=== PATIENT | male | born 1990 | race Caucasian/White ===

== ENCOUNTER 2018-07-01 21:00 | Emergency (ER) | payer MEDICAID, OTHER ==
[2018-07-01 21:00] VITALS: BMI 22.8
--- NOTE | 2018-07-01 22:11 | ED PDOC ---
HPI: Psych/Substance Abuse Chief Complaint (Provider): psych eval History Per: EMS, Family Additional Complaint(s): 27 y/o male brought in by EMS for psych eval. Father at bedside, states patient has been with aggressive behavior, paranoid, and not showering or eating for one week. Noncompliant with psych meds. Mobile crisis contacted. Patient only responding to yes or no questions upon arrival. <Virginie Vasquez - Last Filed: 07/02/18 05:49> <Enrique Vernon - Last Filed: 07/02/18 06:13> Time Seen by Provider: 07/01/18 21:13 Chief Complaint (Nursing): Psychiatric Evaluation Past Medical History Reviewed: Historical Data, Nursing Documentation, Vital Signs Vital Signs: Last Vital Signs Temp 97.8 F 07/01/18 21:01 Pulse 83 07/01/18 21:01 Resp 16 07/01/18 21:01 BP 143/91 H 07/01/18 21:01 Pulse Ox 98 07/01/18 21:01 - Medical History PMH: Bipolar Disorder, Depression Denies: Diabetes, Hepatitis, HIV, HTN, Seizures, Sexually Transmitted Disease - Family History Family History: States: Unknown Family Hx - Immunization History Hx Tetanus Toxoid Vaccination: No Hx Influenza Vaccination: No Hx Pneumococcal Vaccination: No <Virginie Vasquez - Last Filed: 07/02/18 05:49> Vital Signs: Last Vital Signs Temp 97.8 F 07/01/18 21:01 Pulse 83 07/01/18 21:01 Resp 16 07/01/18 21:01 BP 143/91 H 07/01/18 21:01 Pulse Ox 98 07/02/18 05:56 <Enrique Vernon - Last Filed: 07/02/18 06:13> - Home Medications Home Medications: Ambulatory Orders Medication Instructions Recorded No Known Home Med 12/28/17 - Allergies Allergies/Adverse Reactions: Allergies Allergy/AdvReac Type Severity Reaction Status Date / Time No Known Allergies Allergy Verified 12/28/17 13:41 Review of Systems ROS Statement: Except As Marked, All Systems Reviewed And Found Negative Psych: Positive for: Psychosis <Virginie Vasquez - Last Filed: 07/02/18 05:49> Physical Exam - Reviewed Nursing Documentation Reviewed: Yes Vital Signs Reviewed: Yes - Physical Exam Appears: Positive for: Well, Non-toxic, No Acute Distress Head Exam: Positive for: ATRAUMATIC, NORMAL INSPECTION, NORMOCEPHALIC Skin: Positive for: Normal Color Eye Exam: Positive for: Normal appearance ENT: Positive for: Normal ENT Inspection Cardiovascular/Chest: Positive for: Regular Rate, Rhythm Respiratory: Positive for: Normal Breath Sounds Gastrointestinal/Abdominal: Positive for: Normal Exam Back: Positive for: Normal Inspection Extremity: Positive for: Normal ROM Neurologic/Psych: Positive for: Alert, Oriented (x3), Mood/Affect (flat; blank stares, slow to respond to questions) <Virginie Vasquez - Last Filed: 07/02/18 05:49> - Laboratory Results Result Diagrams: 07/02/18 00:22 07/02/18 00:22 - ECG ECG: Positive for: Viewed By Me (reviewed by ED attending) ECG Rhythm: Positive for: Sinus Bradycardia O2 Sat by Pulse Oximetry: 98 - Progress ED Course And Treament: -crisis eval Patient evaluated by personal support worker; to be screened as per Dr. Wilson -cbc -cmp -alcohol -urinalysis -urine drug screen -ekg -1:1 00:00 Patient awake; no distress 1:30 Patient awake; no distress 3:00 Patient awake; no distress 4:30 Patient evaluated by [facility] screener; accepted pending available bed Patient refusing to eat or drink, glucose 73 on labs; IV D5/NS ordered <Virginie Vasquez - Last Filed: 07/02/18 05:49> - Laboratory Results Result Diagrams: 07/02/18 00:22 07/02/18 00:22 Lab Results: Total Bilirubin 0.6 mg/dl (0.2-1.3) 07/02/18 00:22 AST 28 U/L (17-59) 07/02/18 00:22 ALT 24 U/L (21-72) 07/02/18 00:22 Alkaline Phosphatase 66 U/L (38-126) 07/02/18 00:22 Total Protein 8.0 G/DL (6.3-8.2) 07/02/18 00:22 Albumin 4.8 g/dL (3.5-5.0) 07/02/18 00:22 Globulin 3.2 gm/dL (2.2-3.9) 07/02/18 00:22 Albumin/Globulin Ratio 1.5 (1.0-2.1) 07/02/18 00:22 Urine Color Yellow (YELLOW) 07/02/18 05:04 Urine Clarity Cloudy (Clear) 07/02/18 05:04 Urine pH 6.0 (5.0-8.0) 07/02/18 05:04 Ur Specific [place] 1.034 (1.003-1.030) H 07/02/18 05:04 Urine Protein 100 mg/dL (NEGATIVE) 07/02/18 05:04 Urine Glucose (UA) Neg mg/dL (NEGATIVE) 07/02/18 05:04 Urine Ketones 80 mg/dL (NEGATIVE) 07/02/18 05:04 Urine Blood Negative (NEGATIVE) 07/02/18 05:04 Urine Nitrate Negative (NEGATIVE) 07/02/18 05:04 Urine Bilirubin Negative (NEGATIVE) 07/02/18 05:04 Urine Urobilinogen 2.0 mg/dL (0.2-1.0) 07/02/18 05:04 Ur Leukocyte Esterase Neg Halima/uL (Negative) 07/02/18 05:04 Urine RBC (Auto) 4 /hpf (0-3) H 07/02/18 05:04 Urine Microscopic WBC 2 /hpf (0-5) 07/02/18 05:04 Ur Squamous Epith Cells < 1 /hpf (0-5) 07/02/18 05:04 Urine Bacteria Rare (<OCC) 07/02/18 05:04 Hyaline Casts 3-5 /hpf (0-2) H 07/02/18 05:04 <Enrique Vernon - Last Filed: 07/02/18 06:13> Medical Decision Making Medical Decision Making: Patient medically stable for psych admission <Virginie Vasquez - Last Filed: 07/02/18 05:49> Medical Decision Makin Patient is signed out to Dr. Collazo, pending bed availability at [facility]. Scribe Attestation: Documented by Aleta Meehan, acting as a scribe for Enrique Vernon MD. Provider Scribe Attestation: All medical record entries made by the Scribe were at my direction and personally dictated by me. I have reviewed the chart and agree that the record accurately reflects my personal performance of the history, physical exam, medical decision making, and the department course for this patient. I have also personally directed, reviewed, and agree with the discharge instructions and disposition. <Enrique Vernon - Last Filed: 07/02/18 06:13> Disposition - Disposition Disposition Time: 06:00 Patient Signed Over To: Enrique Vernon Handoff Comments: pending available bed and transfer to [facility] <Virginie Vasquez - Last Filed: 07/02/18 05:49> <Enrique Vernon - Last Filed: 07/02/18 06:13> - Clinical Impression Clinical Impression: Schizoaffective disorder - Disposition Condition: STABLE Forms: [employer] (Lao)
[2018-07-02 00:39] LABS: ALB/GLOB RATIO 1.5 (1.0-2.1); ALBUMIN 4.8 g/dL (3.5-5.0); ALT/SGPT 24 U/L (21-72); AST/SGOT 28 U/L (17-59); BLOOD UREA NITROGEN 16 mg/dl (9-20); CALCIUM 9.7 mg/dL (8.4-10.2); GFR NON-AFRICAN AMERICAN > 60
[2018-07-02 00:56] LABS: BASO % 0.3 % (0.0-2.0); EOS % 0.6 % (0.0-4.0); HEMOGLOBIN 14.6 g/dL (12.0-18.0); LYMPH # 1.8 K/uL (1.0-4.3); LYMPH % 25.4 % (20.0-40.0); MEAN CELL VOLUME 91.2 fl (80.0-94.0); MEAN CORPUSCULAR HEMOGLOBIN 29.6 pg (27.0-31.0); MEAN CORPUSCULAR HGB CONC 32.4 g/dL (33.0-37.0); MONO # 0.7 K/uL (0.0-0.8); MONO % 9.4 % (0.0-10.0); NEUT # 4.6 K/uL (1.8-7.0); NEUT % 64.3 % (50.0-75.0); RBC 4.93 Mil/uL (4.40-5.90); RED CELL DISTRIBUTION WIDTH 13.4 % (11.5-14.5); WHITE BLOOD COUNT 7.1 K/uL (4.8-10.8)
[2018-07-02 05:13] LABS: SQUAMOUS EPITHIAL < 1 /hpf (0-5); URINE BACTERIA RARE (<OCC); URINE BILIRUBIN NEGATIVE (NEGATIVE); URINE BLOOD NEGATIVE (NEGATIVE); URINE CLARITY CLOUDY (Clear); URINE COLOR YELLOW (YELLOW); URINE GLUCOSE (UA) NEG (NEGATIVE); URINE LEUKOCYTE ESTERASE NEG Leu/uL (Negative); URINE PROTEIN 100 mg/dL (NEGATIVE)
[2018-07-02 05:25] LABS: BARBITURATES, UR NEGATIVE (NEGATIVE); BENZODIAZEPINES, UR NEGATIVE (NEGATIVE); OPIATES, UR NEGATIVE (NEGATIVE); PHENCYCLIDINE, UR NEGATIVE (NEGATIVE)
--- NOTE | 2018-07-02 07:09 | ED PDOC ---
- Laboratory Results Result Diagrams: 07/02/18 00:22 07/02/18 00:22 Lab Results: Total Bilirubin 0.6 mg/dl (0.2-1.3) 07/02/18 00:22 AST 28 U/L (17-59) 07/02/18 00:22 ALT 24 U/L (21-72) 07/02/18 00:22 Alkaline Phosphatase 66 U/L (38-126) 07/02/18 00:22 Total Protein 8.0 G/DL (6.3-8.2) 07/02/18 00:22 Albumin 4.8 g/dL (3.5-5.0) 07/02/18 00:22 Globulin 3.2 gm/dL (2.2-3.9) 07/02/18 00:22 Albumin/Globulin Ratio 1.5 (1.0-2.1) 07/02/18 00:22 Urine Color Yellow (YELLOW) 07/02/18 05:04 Urine Clarity Cloudy (Clear) 07/02/18 05:04 Urine pH 6.0 (5.0-8.0) 07/02/18 05:04 Ur Specific [place] 1.034 (1.003-1.030) H 07/02/18 05:04 Urine Protein 100 mg/dL (NEGATIVE) 07/02/18 05:04 Urine Glucose (UA) Neg mg/dL (NEGATIVE) 07/02/18 05:04 Urine Ketones 80 mg/dL (NEGATIVE) 07/02/18 05:04 Urine Blood Negative (NEGATIVE) 07/02/18 05:04 Urine Nitrate Negative (NEGATIVE) 07/02/18 05:04 Urine Bilirubin Negative (NEGATIVE) 07/02/18 05:04 Urine Urobilinogen 2.0 mg/dL (0.2-1.0) 07/02/18 05:04 Ur Leukocyte Esterase Neg Halima/uL (Negative) 07/02/18 05:04 Urine RBC (Auto) 4 /hpf (0-3) H 07/02/18 05:04 Urine Microscopic WBC 2 /hpf (0-5) 07/02/18 05:04 Ur Squamous Epith Cells < 1 /hpf (0-5) 07/02/18 05:04 Urine Bacteria Rare (<OCC) 07/02/18 05:04 Hyaline Casts 3-5 /hpf (0-2) H 07/02/18 05:04 - ECG O2 Sat by Pulse Oximetry: 98 (RA) Pulse Ox Interpretation: Normal Medical Decision Making Medical Decision Making: Patient signed out to me by Dr. Vernon pending [facility] bed availability. 0715 Patient accepted to [facility] under Dr. Dominguez. Transfer form completed. Patient stable for transfer. 1215 Labs and CXR unremarkable. Pt medically optimized for transfer to [facility] Scribe Attestation: Documented by Shanika Snowden acting as a scribe for Nhi Collazo MD Provider Attestation: All medical record entries made by the Scribe were at my direction and personally dictated by me. I have reviewed the chart and agree that the record accurately reflects my personal performance of the history, physical exam, medical decision making, and the department course for this patient. I have also personally directed, reviewed, and agree with the discharge instructions and disposition. Disposition - Clinical Impression Clinical Impression: Schizoaffective disorder - POA Present On Arrival: None - Disposition Disposition: Other Institution ([facility]) Disposition Time: 07:15 Condition: STABLE Forms: [employer] (C[place] Verdean)
--- NOTE | 2018-07-02 09:02 | CARD ---
APPROVED REPORT Date of service: 07/02/2018 EKG Measurement Heart [id number] <Conclusion> Sinus bradycardia Early repolarization Otherwise normal ECG
--- NOTE | 2018-07-02 14:25 | RAD ---
Date of service: 07/02/2018 HISTORY: Psych eval. Possible admission COMPARISON: 11/23/2014 FINDINGS: LUNGS: No active pulmonary disease. PLEURA: No significant pleural effusion identified, no pneumothorax apparent. CARDIOVASCULAR: No atherosclerotic calcification present Normal. OSSEOUS STRUCTURES: No significant abnormalities. VISUALIZED UPPER ABDOMEN: Normal. OTHER FINDINGS: None. IMPRESSION: No active disease. No significant interval change compared to the prior examination(s).
--- NOTE | 2018-07-02 14:27 | CP.PCM.CON ---
History of Present Illness - History of Present Illness History of Present Illness: face to face evaluation pt is 27 ys old male with previous diagnosis of bipolar disorder brought to ER by EMS due to increase agitation, threatening and disorganized behaviour pt has not been compliant with medications, became increasingly disorganized , paranoid, with threatening behaviour towards family members pt on evaluation, uncooperative domineering angry mood irritable, affect, paranoid, internally preoccupied with thought blocking pt is alert and awake, oriented to person and place, refusing voluntary admission and stating that he doen not need medications or treatment Past Patient History - Infectious Disease Hx of Infectious Diseases: None - Past Social History Smoking Status: Light Smoker < 10 Cigarettes Daily - CARDIAC Hx Hypertension: No - PULMONARY Hx Tuberculosis: No - NEUROLOGICAL Hx Seizures: No - HEMATOLOGICAL/ONCOLOGICAL Hx Human Immunodeficiency Virus (HIV): No - GENITOURINARY/GYNECOLOGICAL Hx Sexually Transmitted Disorders: No - PSYCHIATRIC Hx Bipolar Disorder: Yes Hx Depression: Yes - SURGICAL HISTORY Hx Surgeries: No - ANESTHESIA Hx Anesthesia: No Meds Allergies/Adverse Reactions: Allergies Allergy/AdvReac Type Severity Reaction Status Date / Time No Known Allergies Allergy Verified 12/28/17 13:41 - Medications Medications: Current Medications Dextrose/Sodium Chloride (Dextrose 5%-0.9% Ns 500 Ml) 500 mls @ 125 mls/hr IV .Q4H MARLEN Stop: 07/03/18 05:02 Last Admin: 07/02/18 09:15 Dose: Not Given Results - Vital Signs Recent Vital Signs: Last Vital Signs Temp 97.8 F 07/01/18 21:01 Pulse 83 07/01/18 21:01 Resp 16 07/01/18 21:01 BP 143/91 H 07/01/18 21:01 Pulse Ox 98 07/02/18 12:30 - Labs Result Diagrams: 07/02/18 00:22 07/02/18 00:22 Labs: Laboratory Results - last 24 hr 07/02/18 07/02/18 07/02/18 00:22 00:22 05:04 WBC 7.1 RBC 4.93 Hgb 14.6 Hct 45.0 MCV 91.2 MCH 29.6 MCHC 32.4 L RDW 13.4 Plt Count 262 MPV 9.0 Neut % (Auto) 64.3 Lymph % (Auto) 25.4 [place] % (Auto) 9.4 Eos % (Auto) 0.6 Baso % (Auto) 0.3 Neut # (Auto) 4.6 Lymph # (Auto) 1.8 [place] # (Auto) 0.7 Eos # (Auto) 0.0 Baso # (Auto) 0.0 Sodium 140 Potassium 4.1 Chloride 99 Carbon Dioxide 24 Anion Gap 21 H BUN 16 Creatinine 1.0 Est GFR ( Amer) > 60 Est GFR (Non-Af Amer) > 60 Random Glucose 73 L Calcium 9.7 Total Bilirubin 0.6 AST 28 ALT 24 Alkaline Phosphatase 66 Total Protein 8.0 Albumin 4.8 Globulin 3.2 Albumin/Globulin Ratio 1.5 Urine Color Urine Clarity Urine pH Ur Specific [place] Urine Protein Urine Glucose (UA) Urine Ketones Urine Blood Urine Nitrate Urine Bilirubin Urine Urobilinogen Ur Leukocyte Esterase Urine RBC (Auto) Urine Microscopic WBC Ur Squamous Epith Cells Urine Bacteria Hyaline Casts Urine Opiates Screen Negative Urine Methadone Screen Negative Ur Barbiturates Screen Negative Ur Phencyclidine Scrn Negative Ur Amphetamines Screen Negative U Benzodiazepines Scrn Negative U Oth Cocaine Metabols Negative U Cannabinoids Screen Negative Alcohol, Quantitative < 10 07/02/18 05:04 WBC RBC Hgb Hct MCV MCH MCHC RDW Plt Count MPV Neut % (Auto) Lymph % (Auto) [place] % (Auto) Eos % (Auto) Baso % (Auto) Neut # (Auto) Lymph # (Auto) [place] # (Auto) Eos # (Auto) Baso # (Auto) Sodium Potassium Chloride Carbon Dioxide Anion Gap BUN Creatinine Est GFR ( Amer) Est GFR (Non-Af Amer) Random Glucose Calcium Total Bilirubin AST ALT Alkaline Phosphatase Total Protein Albumin Globulin Albumin/Globulin Ratio Urine Color Yellow Urine Clarity Cloudy Urine pH 6.0 Ur Specific [place] 1.034 H Urine Protein 100 Urine Glucose (UA) Neg Urine Ketones 80 Urine Blood Negative Urine Nitrate Negative Urine Bilirubin Negative Urine Urobilinogen 2.0 Ur Leukocyte Esterase Neg Urine RBC (Auto) 4 H Urine Microscopic WBC 2 Ur Squamous Epith Cells < 1 Urine Bacteria Rare Hyaline Casts 3-5 H Urine Opiates Screen Urine Methadone Screen Ur Barbiturates Screen Ur Phencyclidine Scrn Ur Amphetamines Screen U Benzodiazepines Scrn U Oth Cocaine Metabols U Cannabinoids Screen Alcohol, Quantitative Assessment & Plan - Assessment and Plan (Free Text) Assessment: bipolar I disorder manic severe with psychotic features Plan: pt at current mental status danger to self and others, refusing voluntary admission and accepted for involuntary admission for further stabilization
--- NOTE | 2018-07-03 00:01 | ED PDOC ---
- Laboratory Results Result Diagrams: 07/02/18 00:22 07/02/18 00:22 Lab Results: Total Bilirubin 0.6 mg/dl (0.2-1.3) 07/02/18 00:22 AST 28 U/L (17-59) 07/02/18 00:22 ALT 24 U/L (21-72) 07/02/18 00:22 Alkaline Phosphatase 66 U/L (38-126) 07/02/18 00:22 Total Protein 8.0 G/DL (6.3-8.2) 07/02/18 00:22 Albumin 4.8 g/dL (3.5-5.0) 07/02/18 00:22 Globulin 3.2 gm/dL (2.2-3.9) 07/02/18 00:22 Albumin/Globulin Ratio 1.5 (1.0-2.1) 07/02/18 00:22 Urine Color Yellow (YELLOW) 07/02/18 05:04 Urine Clarity Cloudy (Clear) 07/02/18 05:04 Urine pH 6.0 (5.0-8.0) 07/02/18 05:04 Ur Specific [place] 1.034 (1.003-1.030) H 07/02/18 05:04 Urine Protein 100 mg/dL (NEGATIVE) 07/02/18 05:04 Urine Glucose (UA) Neg mg/dL (NEGATIVE) 07/02/18 05:04 Urine Ketones 80 mg/dL (NEGATIVE) 07/02/18 05:04 Urine Blood Negative (NEGATIVE) 07/02/18 05:04 Urine Nitrate Negative (NEGATIVE) 07/02/18 05:04 Urine Bilirubin Negative (NEGATIVE) 07/02/18 05:04 Urine Urobilinogen 2.0 mg/dL (0.2-1.0) 07/02/18 05:04 Ur Leukocyte Esterase Neg Halima/uL (Negative) 07/02/18 05:04 Urine RBC (Auto) 4 /hpf (0-3) H 07/02/18 05:04 Urine Microscopic WBC 2 /hpf (0-5) 07/02/18 05:04 Ur Squamous Epith Cells < 1 /hpf (0-5) 07/02/18 05:04 Urine Bacteria Rare (<OCC) 07/02/18 05:04 Hyaline Casts 3-5 /hpf (0-2) H 07/02/18 05:04 - ECG O2 Sat by Pulse Oximetry: 100 (RA) Pulse Ox Interpretation: Normal Medical Decision Making Medical Decision Makin Patient endorsed by Dr. Patel, pending [facility] bed availability. At 1AM patient taken by BLS to [facility] Scribe Attestation: Documented by Aleta Meehan, acting as a scribe for Enrique Vernon MD. Provider Scribe Attestation: All medical record entries made by the Scribe were at my direction and personally dictated by me. I have reviewed the chart and agree that the record accurately reflects my personal performance of the history, physical exam, medical decision making, and the department course for this patient. I have also personally directed, reviewed, and agree with the discharge instructions and disposition. Disposition - Clinical Impression Clinical Impression: Schizoaffective disorder - POA Present On Arrival: None - Disposition Disposition: Other Institution Disposition Time: 06:51 Condition: FAIR Forms: [employer] (Albanian)
[2018-07-03 01:56] VITALS: BP 119/83; PULSE 73; RESP 16; TEMP 98
[2018-07-03 06:51] VITALS: O2SAT 100
== END 2018-07-03 01:50 | disposition short-term general hospital (02) ==
LOC: H.ER 21:00
DX: F25.9 Schizoaffective disorder, unspecified (principal); F31.2 Bipolar disorder, current episode manic severe with psychotic features; Z91.14 Patient's other noncompliance with medication regimen; F17.210 Nicotine dependence, cigarettes, uncomplicated
CPT/HCPCS: 80053; 80320; 80324; 80345; 80346; 80349; 80353; 80358; 80361; 81003; 83992; 85025; 99285; J7042

== ENCOUNTER 2018-08-07 02:35 | Emergency (ER) | payer MEDICAID ==
[2018-08-07 02:35] VITALS: BMI 22.8
[2018-08-07 02:44] VITALS: BP 111/58; PULSE 58; RESP 16; TEMP 98; O2SAT 100
--- NOTE | 2018-08-07 03:47 | ED PDOC ---
HPI: Psych/Substance Abuse Time Seen by Provider: 08/07/18 02:53 Chief Complaint (Nursing): Psychiatric Evaluation Chief Complaint (Provider): Psychiatric Evaluation ED Caveat: Uncooperative History Per: Patient Additional Complaint(s): 27 years old male with a history of bipolar disorder brought in by EMS. Patient reports he came home from work, went to bed and his father called EMS for he has not been taking his medications. Patient is not forthcoming with history and uncooperative. He denies suicidal and homicidal ideation. PMD: None provided Past Medical History Reviewed: Historical Data, Nursing Documentation, Vital Signs Vital Signs: Last Vital Signs Temp 98.0 F 08/07/18 02:41 Pulse 58 L 08/07/18 02:41 Resp 16 08/07/18 02:41 BP 111/58 L 08/07/18 02:41 Pulse Ox 100 08/07/18 02:41 - Medical History PMH: Bipolar Disorder, Depression Denies: Diabetes, Hepatitis, HIV, HTN, Seizures, Sexually Transmitted Disease - Surgical History Surgical History: No Surg Hx - Family History Family History: States: Unknown Family Hx - Immunization History Hx Tetanus Toxoid Vaccination: No Hx Influenza Vaccination: No Hx Pneumococcal Vaccination: No - Home Medications Home Medications: Ambulatory Orders Medication Instructions Recorded No Known Home Med 12/28/17 - Allergies Allergies/Adverse Reactions: Allergies Allergy/AdvReac Type Severity Reaction Status Date / Time No Known Allergies Allergy Verified 12/28/17 13:41 Review of Systems ROS Statement: Except As Marked, All Systems Reviewed And Found Negative Psych: Negative for: Suicidal ideation (or homicidal) Physical Exam - Reviewed Nursing Documentation Reviewed: Yes Vital Signs Reviewed: Yes - Physical Exam Appears: Positive for: Well, No Acute Distress Head Exam: Positive for: ATRAUMATIC, NORMOCEPHALIC Skin: Positive for: Normal Color, Warm, Dry Eye Exam: Positive for: Normal appearance, EOMI, PERRL Cardiovascular/Chest: Positive for: Regular Rate, Rhythm. Negative for: Murmur Respiratory: Positive for: Normal Breath Sounds. Negative for: Respiratory Distress Gastrointestinal/Abdominal: Positive for: Normal Exam, Soft. Negative for: Tenderness Back: Positive for: Normal Inspection Neurological/Psych: Positive for: Awake, Alert, Oriented (x3), Mood/Affect (agitated mood) - ECG O2 Sat by Pulse Oximetry: 100 (RA) Pulse Ox Interpretation: Normal Medical Decision Making Medical Decision Making: Time: 329 A/P: Likely decompensated bipolar disease secondary to meds noncompliance --Will require crisis evaluation. Crisis is aware 545 --Patient is cleared by crisis with diagnosis of Schizoaffective Disorder by Dr. Wilson ScribeAttestation: Documented byAleta Meehan, acting as a scribe for Narinder Ledesma MD. Provider ScribeAttestation: All medical record entries made by the Scribe were at my direction and personally dictated by me. I have reviewed the chart and agree that the record accurately reflects my personal performance of the history, physical exam, medical decision making, and the department course for this patient. I have also personally directed, reviewed, and agree with the discharge instructions and disposition. Disposition - Clinical Impression Clinical Impression: Schizoaffective disorder - Patient ED Disposition Is Patient to be Admitted: No - Disposition Disposition: Routine/Home Disposition Time: 05:46 Condition: GOOD Instructions: Schizoaffective Disorder Forms: [employer] (Macanese)
[2018-08-07 05:07] LABS: BARBITURATES, UR NEGATIVE (NEGATIVE); BENZODIAZEPINES, UR NEGATIVE (NEGATIVE); OPIATES, UR NEGATIVE (NEGATIVE); PHENCYCLIDINE, UR NEGATIVE (NEGATIVE)
== END 2018-08-07 06:04 | disposition home or self-care (01) ==
LOC: H.ER 02:35
DX: F25.1 Schizoaffective disorder, depressive type (principal); F31.9 Bipolar disorder, unspecified; Z91.14 Patient's other noncompliance with medication regimen